=== PATIENT | male | born 1975 | race Caucasian/White ===

== ENCOUNTER 2020-10-20 13:17 | Emergency (ER) | payer BC ==
[~2020-10-20] VITALS: Ht 175.3 cm; Wt 79.4 kg
== END 2020-10-20 14:48 | disposition home or self-care (01) ==
LOC: ER 13:56
DX: T18.9XXA Foreign body of alimentary tract, part unspecified, initial encounter (principal)
CPT/HCPCS: 71045; 74018; 99283

== ENCOUNTER 2020-10-24 05:17 | Emergency (ER) | payer BC ==
[~2020-10-24] VITALS: Ht 175.3 cm; Wt 79.4 kg
[2020-10-24] MEDS ORDERED: KETOROLAC TROMETHAMINE 60 MG/2 ML VIAL IM ONE (05:45)
== END 2020-10-24 07:28 | disposition home or self-care (01) ==
LOC: ER 05:21
DX: M94.0 Chondrocostal junction syndrome [Tietze] (principal)
CPT/HCPCS: 71046; 74019; 93005; 99283; J1885

== ENCOUNTER → 2021-04-13 | Outpatient (CLI) | payer BC | LOC: RAD 13:27 | PROVIDERS: ATTEND Family Medicine | DX: M79.605 Pain in left leg (principal); M79.604 Pain in right leg | CPT/HCPCS: 93970 ==